=== PATIENT | female | born 1995 ===

== ENCOUNTER 2016-07-27 00:14 | Outpatient (CLI) | payer SELFPAY ==
[~2016-07-27] VITALS: Ht 160 cm; Wt 79.0 kg
--- NOTE | 2016-07-27 01:24 | HPE ---
DATE OF ADMISSION: 07/27/2016 21-year-old 3, para 1, abortus 1, last menstrual period (LMP) 10/24/2015, estimated date of confinement (EDC) 07/30/2016, at 39 and 4 of gestation with a history of 2 hours of irregular contractions and pain. No vaginal bleeding or loss. PAST HISTORY: 1. 2013, at 41 weeks spontaneous vaginal delivery after induction of labor, hemorrhage with blood transfusion, had a cervical laceration, female 8 pounds. 2. 2015, spontaneous . LABORATORY DATA: A positive, HIV negative, hepatitis negative, RPR negative, rubella immune. Varicella immune. Pap normal. Urine negative. Gonorrhea and chlamydia are negative. 1-hour glucose was 105 and group B Streptococcus (GBS) was negative. On examination, no distress. Symphysis fundus height is 40, vertex, occiput anterior (OA), not dilated, high, posterior, thick and closed. No vaginal loss or bleeding. Blood pressure 111/62, respirations 18, pulse 79, temperature 98.5. Urine is 1.005, pH 7 and negative. The rest of the examination is unremarkable. She is normocephalic, atraumatic. Neck full range of motion. Pupils equal and reactive to light. Chest is clear bilaterally to bases. No wheezes or rhonchi. Distal pulses are symmetric. No evidence of deep venous thrombosis (DVT), pulmonary embolus (PE) or superficial phlebitis. No costovertebral angle (CVA) tenderness. Symphysis fundus height is appropriate. Four quadrant bowel sounds and a category one strip. No rashes, lesions or pruritus. No arthralgia, myalgia. No complaints of cough, wheezes, shortness of breath or dyspnea on exertion. No chest pain. Not bleeding. Neurologically complete. No urgency, incontinence, frequency. No nausea, vomiting, diarrhea or constipation. No diabetic issues. 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 Past history unremarkable as is surgical history. FAMILY HISTORY: Noncontributory. Does not smoke or drink, abuse drugs and there is no domestic violence. In summary, we have a term gestation with uterine irritability. Category one strip. We plan on reassessment in 1 hour. If there is no change in her cervix, she will be discharged with instructions to followup with her appropriate appointment interval or to return if contractions become more intensified.
[2016-07-27 02:06] VITALS: BP 111/62
[2016-07-27] MEDS ORDERED: PRENTAB9 PO (02:14)
== END 2016-07-27 01:06 | disposition home or self-care (01) ==
LOC: M LDO 00:14
PROVIDERS: ATTEND Obstetrics & Gynecology
DX: O62.0 Primary inadequate contractions (principal); Z3A.39 39 weeks gestation of pregnancy; O09.293 Supervision of pregnancy with other poor reproductive or obstetric history, third trimester

== ENCOUNTER 2016-08-05 21:17 | Inpatient (IN) | payer OTHER, SELFPAY ==
[~2016-08-05] VITALS: Ht 160 cm; Wt 79.0 kg
[2016-08-05 21:15] VITALS: BP 120/68
[~2016-08-05 21:17] MED LIST: PRENTAB9 PO
[2016-08-05 22:40] LABS: MEAN CORPUSCULAR HEMOGLOBIN 29.2 pg (27.0-33.0); MEAN CORPUSCULAR HGB CONC 33.8 g/dl (32.0-36.5); MEAN CORPUSCULAR VOLUME 86.5 fl (80.0-96.0); RED CELL DISTRIBUTION WIDTH 13.9 % (11.5-14.5); WHITE BLOOD COUNT 5.5 K/mm3 (4.0-10.0)
[2016-08-06] VITALS (21 sets, daily range): BP systolic 94–141; BP diastolic 48–88
[2016-08-06] MEDS ORDERED: FENTANYL 2MCG/ML ROPIVACAINE 0.2% IN 0.9% NACL 200ML IVBAG As Ordered ONE (01:43)
--- NOTE | 2016-08-06 08:11 | IPNPDOC ---
Text Note Date of Service The patient was seen on 08/06/16. NOTE [id number] @ 0756 21 yo presented to L&D @ 40+6(05AUG2016) by LMP([id number]) and 8+5 wk US done on 20DEC2015 with SROM clear fluid @ 2049 on 05AUG2016. She has continued cervical change since admission. S: comfortable in bed on her left side with epidural infusing. Reports pressure when she is having a CTX, but not between CTXs. Spouse and 3 yo daughter at bedside. O: VS- T-100.5, BP WNL, HR- 80s-90s, RESP- < 20 FHR- 145, moderate variability, + accels, intermittent early and late decelerations CTX- Q 2-4 min, lasting < 90 sec, palpated as strong, resting tone palpated as soft SVE- deferred SROM x 12 hour. Fluid remains clear EFW- 3800 grams PMH- denies PSH- denies MEDS- PNV prior to admission NKDA OB hx- - IOL d/t post-dates, SVE female 8 lbs 0 oz with PPH that required transfusion - SAB @ 10 wks LABS- GBS negative, Rubella- immune, varicells- immune, A positive A: 21 you @ 41+0 by LMP and 8 wk US. CAT II FHR tracing, Active Labor. P: continue to monitor and assess, reassess in 1 hour or prn, continue to monitor for s/s of chorio, PPH kit at bedside for delivery, start pitocin with delivery of anterior shoulder. Report from Dr. Smith @ [id number]. Dr. Wheeler is current backup and is aware of patient status, turn to right side. VS,Fishbone, I+O VS, Fishbone, I+O Laboratory Tests 08/05/16 22:28 Red Blood Count 4.53, Mean Corpuscular Volume 86.5, Mean Corpuscular Hemoglobin 29.2, Mean Corpuscular Hemoglobin Concent 33.8, Red Cell Distribution Width 13.9 Vital Signs Date Time Temp Pulse Resp B/P (MAP) Pulse Ox O2 Delivery O2 Flow Rate FiO2 08/06/16 05:16 94 99/56 (70) 08/06/16 04:00 99.0 18 Room Air I&O- Last 24 Hours up to 6 AM 08/06/16 05:59 Intake Total 1750 ml Balance 1750 ml LUNA VALERA CNM August 06, 2016 08:11
[2016-08-06] MEDS: PRENATAL VITAMIN TAB PO SCH (09:00)
[2016-08-06] MEDS ORDERED: REFRIGERATOR IV KEYS XX PRN (10:45)
[2016-08-06] MEDS ORDERED: FENTANYL/ROPIVACAINE/NACL BAG 200 ML EPIDURAL SCH (10:45)
[2016-08-06] MEDS ORDERED: ONDANSETRON 4MG/2ML VIAL (J2405) IV PRN ×2 (10:45→11:15)
[2016-08-06] MEDS ORDERED: ePHEDrine SULFATE 25 MG/5 ML(5MG/ML) SYRINGE IV PRN (10:45)
[2016-08-06] MEDS ORDERED: LACTATED RINGER'S 1000 ML IV PRN (10:45)
[2016-08-06] MEDS ORDERED: EPIDURAL COMMENT XX SCH (10:45)
[2016-08-06] MEDS ORDERED: NALOXONE INJ 0.4 MG/1 ML VIAL (J2310) IV PRN (10:45)
[2016-08-06] MEDS ORDERED: diphenhydrAMINE INJ 50MG/ML VIAL (J1200) IV PRN (10:45)
[2016-08-06] MEDS ORDERED: EPIDURAL/PCA KEYS XX PRN (10:45)
--- NOTE | 2016-08-06 10:56 | DNPDOC ---
[facility] Delivery Note Delivery Note DATE OF DELIVERY: August 06, 2016 at 0942 PREDELIVERY DIAGNOSIS: 41+1 weeks' gestation and labor. POST DELIVERY DIAGNOSIS: Delivered. PROCEDURE: STOCKROOM INVENTORY CLERK: Modesta GASTELUM CNM ANESTHESIA: epidural ESTIMATED BLOOD LOSS: 250 mL. FINDINGS: 8 pound 9 ounce female infant, Score 8/9. DELIVERY SUMMARY: 21yo G3 now P2012 admitted to L&D [facility] clear fluid on 05AUG2016 @ 2049; patient progressed to c/c/+2 with epidural infusing and a strong desire to push; delivery was via of a viable female to a clean field; the infant presented occiput anterior with no nuchal cord noted; anterior shoulder(left) delivered with mild downward traction, then the posterior shoulder delivered with mild upward traction; remainder of corpus delivered spontaneously; placed on mother's lower abdomen d/t short cord. Bulb suction was performed and initial cleaning completed, delayed cord clamping x 3 minutes, then cord clamped x 2 and cut by FOB; the child had a vigorous cry and was moved to mother's chest for [id number]; pitocin was started with delivery of the anterior shoulder; 3 vessel cord and normal placenta were delivered without complications approx 5 minutes later; fundal massage was applied and vaginal vault was swept for clots; vagina and perineum examined; no lacerations noted. Fundus firm at U-1. PCI=458 ml, Infant had 8/9; mother and are bonding well and were stable in the delivery room; anticipate routine PP course. Delivering Provider: MECHELLE Faustin KELLI C. CNM August 06, 2016 10:56
[2016-08-06] MEDS ORDERED: OXYTOCIN DRIP 30 UNITS in APPROPRIATE DILUENT 1 EA IV SCH (11:02)
[2016-08-06] MEDS ORDERED: miSOPROStol 200 MCG TAB (S0191) PR ONE (11:15)
[2016-08-06] MEDS ORDERED: MOM 30ML SUSPENSION UDC PO PRN (11:15)
[2016-08-06] MEDS ORDERED: ACETAMINOPHEN 500 MG TAB PO PRN (11:15)
[2016-08-06] MEDS ORDERED: DOCUSATE SODIUM 100 MG CAP PO PRN (11:15)
[2016-08-06] MEDS ORDERED: PROMETHAZINE 25 MG TAB PO PRN (11:15)
[2016-08-06] MEDS ORDERED: ANUSOL HC CREAM 30GM TOP PRN (11:15)
[2016-08-06] MEDS ORDERED: DIBUCAINE 1% OINTMENT 30GM TOP PRN (11:15)
[2016-08-06] MEDS: IBUPROFEN 800 MG TAB PO PRN ×2 (11:53→20:33)
[2016-08-07 05:53] VITALS: BP 109/60
--- NOTE | 2016-08-07 06:43 | IPNPDOC ---
Text Note Date of Service The patient was seen on 08/07/16. NOTE Michelle is a 21yo doing well on PPD 2 s/p uncomplicated . She is bottle feeding. Lochia normal. Mares in place secondary to urinary retention yesterday. Ambulating without difficulty. Tolerating regular diet. Denies f/c/n/ v/SOB/CP/MOORE/abdominal pain. Vitals wnl, afebrile Exam: General: WDWN, NAD, resting comfortably Cardiac: S1S2 present, no murmur Lungs: CTAB without wheeze/crackles Abdomen: soft, NTTP, fundus firm u-2cm Extremities: no tenderness of calves bilaterally Mares in place Assessment: Michelle is a 21yo doing well on PPD 2 s/p uncomplicated . Mares in place overnight secondary to urinary retention yesterday. No e/o infection, hemodynamically stable. Plan: - remove mares this morning with due to void in 6 hours -if voiding spontaneously without issue, will discharge to home with routine follow-up for 6wk PP visit -home meds already given from clinic stock: motrin/tylenol/colace -desires OCP for contraception, will prescribe at PP clinic visit Dr. Ashlyn Wheeler MD [place] VS,Danny, I+O VS, Danny, I+O Vital Signs Date Time Temp Pulse Resp B/P (MAP) Pulse Ox O2 Delivery O2 Flow Rate FiO2 08/07/16 05:53 96.8 72 16 109/60 (76) 08/06/16 04:00 Room Air I&O- Last 24 Hours up to 6 AM 08/07/16 06:00 Intake Total 1940 ml Output Total 3800 ml Balance -1860 ml ASHLYN WHEELER MD August 07, 2016 06:43
[2016-08-07] MEDS: PRENATAL VITAMIN TAB PO SCH (08:19)
[2016-08-07] MEDS ORDERED: TYLE500T78 PO (11:15)
[2016-08-07] MEDS ORDERED: COLA100C3 PO (11:16)
[2016-08-07] MEDS ORDERED: IBUP800T23 PO (11:16)
== END 2016-08-07 12:30 | disposition home or self-care (01) | DRG 775 ==
LOC: M LDO 21:17 → M ED INP 21:53 → M LDI 22:29 → M OBS 08-06 11:16
PROVIDERS: ADMIT Obstetrics & Gynecology; ATTEND Midwife
PROC: 10E0XZZ Delivery of Products of Conception, External Approach (ICD-10-PCS; principal; 2016-08-06)
DX: O48.0 Post-term pregnancy (principal); Z3A.40 40 weeks gestation of pregnancy; Z37.0 Single live birth